=== PATIENT | male | born 1960 | race Caucasian/White ===

== ENCOUNTER → 2023-04-19 | Outpatient (CLI) | payer BC ==
[2023-04-19 16:25] LABS: Basophils # (A) 0.03 X 10*3/uL (0.00-0.10); Basophils % (A) 0.4 %; Eosinophils # (A) 0.04 X 10*3/uL (0.04-0.35); Eosinophils % (A) 0.6 %; HCT 47.3 % (39.6-50.0); HGB 15.7 d/dL (13.0-17.0); Lymphocytes # (A) 2.57 X 10*3/uL (0.90-5.00); Lymphocytes % (A) 35.5 %; MCH 30.3 pg (27.0-32.0); MCHC 33.2 d/dL (32.0-37.0); MCV 91.3 FL (80.0-97.0); Mean Platelet Volume 11.9 FL (9.5-12.2); Monocytes # (A) 0.52 X 10*3/uL (0.20-1.00); Monocytes % (A) 7.2 %; NRBC Per 100 WBC 0 X 10*3/uL (0.00-0.01); Neutrophils # (A) 4.02 X 10*3/uL (1.80-7.70); Neutrophils % (A) 55.6 %; Platelet Count 238 X 10*3/uL (140-440); RBC 5.18 X 10*6/uL (4.40-5.60); RDW 13.8 % (11.5-14.5); WBC 7.23 X 10*3/uL (4.50-10.00)
[2023-04-19 18:14] LABS: INR 0.97 sec (0.93-1.11)
[2023-04-19 18:40] LABS: BUN/Creat Ratio 23.25 Ratio (12.00-20.00); Blood Urea Nitrogen 18.6 mg/dL (9.0-27.0); Calcium 9.8 mg/dL (8.7-10.3); Carbon Dioxide 24.3 mmol/L (21.6-31.8); Chloride 103 mmol/L (96-109); Glucose 111 mg/dL (70-110); Potassium 4.5 mmol/L (3.5-5.5); Sodium 140 mmol/L (135-145)
== END | disposition home or self-care (01) ==
LOC: LABWHC1 10:02
PROVIDERS: ATTEND Orthopaedic Surgery
DX: Z01.812 Encounter for preprocedural laboratory examination (principal); Z22.322 Carrier or suspected carrier of Methicillin resistant Staphylococcus aureus; M17.12 Unilateral primary osteoarthritis, left knee
CPT/HCPCS: 36415; 80048; 85025; 85610; 87070; 93005

== ENCOUNTER → 2023-05-09 | Outpatient (CLI) | payer BC ==
[2023-05-09 19:58] LABS: HCT 48.6 % (39.6-50.0); MCH 30.4 pg (27.0-32.0); MCHC 32.9 d/dL (32.0-37.0); MCV 92.2 FL (80.0-97.0); Mean Platelet Volume 11.5 FL (9.5-12.2); NRBC Per 100 WBC 0 X 10*3/uL (0.00-0.01); Platelet Count 258 X 10*3/uL (140-440); RBC 5.27 X 10*6/uL (4.40-5.60); RDW 13.6 % (11.5-14.5); WBC 8.28 X 10*3/uL (4.50-10.00)
[2023-05-09 20:51] LABS: ALT 31 U/L (10-49); AST 18 U/L (14-35); Albumin 4.4 d/dL (3.8-4.9); Albumin/Globulin Ratio 1.83 Ratio (1.60-3.17); Alkaline Phosphatase 79 U/L (41-126); BUN/Creat Ratio 22.88 Ratio (12.00-20.00); Blood Urea Nitrogen 18.3 mg/dL (9.0-27.0); Calcium 9.8 mg/dL (8.7-10.3); Carbon Dioxide 26.4 mmol/L (21.6-31.8); Chloride 102 mmol/L (96-109); Globulin 2.4 d/dL (1.6-3.3); Glucose 105 mg/dL (70-110); Magnesium 2.1 mg/dL (1.5-2.4); Potassium 4.5 mmol/L (3.5-5.5); Sodium 140 mmol/L (135-145); Total Bilirubin 0.5 mg/dL (0.3-1.2); Total Protein 6.8 d/dL (6.2-8.2)
[2023-05-09 21:12] LABS: PSA Annual Screen 0.985 ng/mL (0.000-4.000)
== END | disposition home or self-care (01) ==
LOC: LABWHC1 13:06
PROVIDERS: ATTEND Orthopaedic Surgery
DX: Z00.00 Encounter for general adult medical examination without abnormal findings (principal); Z12.5 Encounter for screening for malignant neoplasm of prostate; Z76.89 Persons encountering health services in other specified circumstances; I48.0 Paroxysmal atrial fibrillation; N40.0 Benign prostatic hyperplasia without lower urinary tract symptoms; R53.83 Other fatigue; Z79.899 Other long term (current) drug therapy
CPT/HCPCS: 80061; 80053; 84443; 83735; 85027; 83036; 36415; G0103

== ENCOUNTER → 2023-05-09 | Outpatient (CLI) | payer BC ==
--- NOTE | 2023-05-10 11:39 | CA ---
Transthoracic Echo Report Name: Ramiro Gastelum Age: 63 Gender: M : 1960 Exam Date: 05/09/2023 13:04 Exam Location: [facility] Ht (in): 70 Wt (lb): 258 Ordering Physician: Buzz Painter MD ([id number]) Attending/Referring Phys: Mix Maker Adina Olmos RDCS Procedure CPT: Indications: I48.91 ATRIAL FIBRILLATION Cardiac Hx: Technical Quality: Fair Contrast 1: Total Dose (mL): Contrast 2: Total Dose (mL): MEASUREMENTS (Male / Female) Normal Values 2D ECHO LV Diastolic Diameter PLAX 3.3 cm 4.2 - 5.9 / 3.9 - 5.3 cm LV Systolic Diameter PLAX 2.6 cm IVS Diastolic Thickness 1.8 cm 0.6 - 1.0 / 0.6 - 0.9 cm LVPW Diastolic Thickness 1.5 cm 0.6 - 1.0 / 0.6 - 0.9 cm LV Relative Wall Thickness 1.0 RV Internal Dim ED PLAX 4.1 cm LA Volume 148.0 cm??? 18 - 58 / 22 - 52 cm??? LA Volume Index 60.4 cm???/m??? 16 - 28 cm???/m??? M-MODE Aortic Root Diameter MM 3.4 cm LA Systolic Diameter MM 5.3 cm LA Ao Ratio MM 1.6 AV Cusp Separation MM 2.5 cm DOPPLER AV Peak Velocity 98.6 cm/s AV Peak Gradient 3.9 mmHg AV Mean Velocity 68.0 cm/s AV Mean Gradient 2.1 mmHg AV Velocity Time Integral 17.9 cm LVOT Peak Velocity 76.7 cm/s LVOT Peak Gradient 2.4 mmHg LVOT Velocity Time Integral 12.0 cm MV Area PHT 4.0 cm??? Mitral E Point Velocity 70.9 cm/s Mitral A Point Velocity 0.7 cm/s Mitral E to A Ratio 100.5 MV Deceleration Time 188.4 ms TR Peak Velocity 167.2 cm/s TR Peak Gradient 11.2 mmHg Right Ventricular Systolic Press 16.2 mmHg FINDINGS Left Ventricle Moderately increased left ventricular wall thickness. Left ventricular cavity size normal. Normal left ventricular systolic function with no obvious regional wall motion abnormalities. Left ventricular ejection fraction is estimated at 50-55 %. Right Ventricle Moderate right ventricular dilatation. Right ventricular systolic pressure within normal limits. Right Atrium Normal right atrial size. Left Atrium Severely increased left atrial volume. Moderately increased left atrial area. Mitral Valve Structurally normal mitral valve. Mitral valve thickened. Mild mitral annular calcification. Moderate mitral regurgitation. Aortic Valve Trileaflet aortic valve. No aortic valve stenosis or regurgitation. Tricuspid Valve Structurally normal tricuspid valve. Mild tricuspid regurgitation. Pulmonic Valve Trace pulmonic regurgitation. Pericardium No pericardial effusion. Aorta Normal size aortic root and proximal ascending aorta. CONCLUSIONS LVH with low normal LV systolic function, left atrial enlargement Previewed by: Dr. Jovan Chen MD (Electronically Signed) Final Date: 10 May 2023 11:38
== END | disposition home or self-care (01) ==
LOC: RADECHMAIN 12:56
PROVIDERS: ATTEND Student in an Organized Health Care Education/Training Program
DX: I48.91 Unspecified atrial fibrillation (principal)
CPT/HCPCS: 93306

== ENCOUNTER 2023-05-23 06:00 | Day surgery (SDC) | payer BC ==
[2023-05-18 12:00] VITALS: BMI 35.9
[~2023-05-23 06:00] MED LIST: LACTATED RINGERS 1,000 ML IV SCH; LIDOCAINE 1% (10MG/ML) FOR IV START INTRADERMA PRN
[2023-05-23 06:56] VITALS: TEMP 98.2
[2023-05-23] MEDS ORDERED: HYDROmorphone 0.5 MG/0.5 ML SYRINGE IVP PRN (07:00)
[2023-05-23] MEDS ORDERED: PROPOFOL 10 MG/ML 20 ML VIAL IV ONE (07:45)
[2023-05-23 07:57] VITALS: RESP 16
[2023-05-23 09:37] VITALS: BP 121/73; PULSE 78
--- NOTE | 2023-05-23 21:09 | P.TEE ---
Date of Procedure: 05/23/23 Description of Procedure(s): Procedure performed: 1. Transesophageal Echocardiogram. 2. Synchronized Cardioversion. Indications: Persistent atrial fibrillation Consent: I have discussed the risks, benefits and alternative therapies for the above-mentioned procedure. The patient has indicated understanding and acceptance of the risks of the procedure. Signed consent was obtained and was placed in the paper chart. Moderate conscious sedation: Moderate conscious sedation was administered by anesthesia, see separate report. Procedural Steps: Timeout was performed in usual fashion. Patient's heart rate, blood pressure, oxygen saturation and ECG were monitored. After achieving appropriate moderate conscious sedation, TYRONE probe was advanced without difficulty and without any immediate complications to the esophagus. TYRONE study was performed with color flow doppler, pulsed wave doppler and continuous wave doppler. Agitated saline bubbles were injected to assess for any intra-atrial shunt. The probe was then removed. After making sure that there is no evidence of intracardiac thrombus, pacer pads were placed on patients chest and back. Synchronized cardioversion was perfromed using [150] J. [1] attempt. Sinus rhythm was confirmed with a 12 lead EKG. Patient tolerated the procedure well. Patient was transferred to the post procedure area in stable and satisfactory condition. Complications: none FINDINGS Left Atrium: Moderate left atrial dilatation. No evidence of mass or thrombus seen Left Atrial Appendage: No evidence of thrombus or mass seen in PATRIC[place] Inter atrial septum: Intact inter-atrial septum. No evidence of atrial septal defect or patent foramen ovale on color doppler. Left Ventricle: Normal global LV size and systolic function Right Atrium: Normal overall RV size Right Ventricle: Normal global RV size and systolic function Aortic Valve: Structurally normal Trileaflet, no significant calcification. No significant stenosis or regurgitation on color doppler assessment. Mitral Valve: Struturally normal. No evidence of prolapse. Moderate functional mitral regurgitation Pulmonic Valve: Not well visualized. Tricuspid Valve: Structurally normal. Ascending aorta, Aortic root and Aortic arch: Mild intimal thickening. No e vidence of large atheroma or bulky calcification Descending aorta: Mild intimal thickening. No evidence of large atheroma or bulky calcification CONCLUSION: No evidence of left atrial or left atrial appendage thrombus Moderate left atrial dilatation Moderate functional mitral regurgitation Overall normal global LV size and systolic function Successful synchronized cardioversion in one attempt No changes to the medication, follow-up outpatient in next 1-2 weeks
== END 2023-05-23 09:48 | disposition home or self-care (01) ==
LOC: OR 06:00
PROVIDERS: ATTEND Student in an Organized Health Care Education/Training Program
DX: I48.19 Other persistent atrial fibrillation (principal); J45.909 Unspecified asthma, uncomplicated; F12.90 Cannabis use, unspecified, uncomplicated; I10 Essential (primary) hypertension; Z79.01 Long term (current) use of anticoagulants; Z79.51 Long term (current) use of inhaled steroids; Z79.899 Other long term (current) drug therapy; Z87.891 Personal history of nicotine dependence; Z88.0 Allergy status to penicillin
CPT/HCPCS: 93312; 93320; 93325; 92960; J2704

== ENCOUNTER → 2023-09-29 | Outpatient (CLI) | payer BC ==
--- NOTE | 2023-10-05 10:54 | P.PCN ---
Date of Procedure: 09/29/23 Operative Findings: The study report Date of services 09/29/2023 Pertinent history 63-year-old male patient referred to me for sleep apnea evaluation. The patient has paroxysmal A-fib under the care of cardiology maintained on a combination of metoprolol and anticoagulation with Eliquis. Suspected obstructive sleep apnea, but believes his A-fib. The patient does not have the typical symptoms and signs of obstructive sleep apnea. He has a positive family history. He has lost weight over the past few years. He has hypertension Pertinent physical findings Height is 5 feet and 10 inches, weight is 271 pounds with a BMI of 38.9 Technical description The [employer] apnea link system was used to complete some sleep study. There is a type III home sleep study. Total recording duration was 8 hours and 47 minutes. The study started at 10:24 PM and ended at 7:12 AM. There was more than 8 hours of flow and oxygen saturation evaluation throughout the study Results The respiratory analysis showed a total of 26 obstructive apneas and 53 obstructive hypopneas. The resulting AHI was 10.3 worse in supine body position with an AHI of 19.6 while supine. Oxygenation analysis There was a total of 71 oxygen saturation with a pulse of provide more than 4%. Baseline pulse ox while awake was 96%, average pulse ox during sleep was 93% with a minimum pulse ox of 84% and the patient spent only 9 minutes of sleep time below pulse ox of 99% Cardiac summary Average heart rate was 55 with a minimum heart rate of 48 and max heart rate of 95 Assessment Mild obstructive sleep apnea, positional. Apnea-hypopnea index was 10.3 worse in the supine body position. No significant nocturnal oxygen saturation. No major hypersomnia or sleepiness Paroxysmal A-fib Allergic bronchial asthma Hypertension Obesity with a BMI of 38 Plan This is a case of mild obstructive sleep apnea. The results were discussed with the patient and treatment options will be also discussed. I personally do not think that sleep apnea is been a major factor to the patient's A-fib. The patient has mild disease. Encouraged to continue his efforts to lose weight. Obviously, we can treat him with CPAP or other appropriate treatments such as an oral appliance as long as the patient is willing to undertake treatment and only becomes symptomatic from sleep apnea. A final decision on treatment will be made after having a discussion with the patient.
== END ==
LOC: 3 N SLEEP 12:59
PROVIDERS: ATTEND Internal Medicine Critical Care Medicine
DX: G47.33 Obstructive sleep apnea (adult) (pediatric) (principal); I48.0 Paroxysmal atrial fibrillation; J45.909 Unspecified asthma, uncomplicated; I10 Essential (primary) hypertension; F12.90 Cannabis use, unspecified, uncomplicated; E66.9 Obesity, unspecified; Z68.38 Body mass index [BMI] 38.0-38.9, adult; Z88.7 Allergy status to serum and vaccine; Z88.0 Allergy status to penicillin; Z88.8 Allergy status to other drugs, medicaments and biological substances; Z79.01 Long term (current) use of anticoagulants; Z79.899 Other long term (current) drug therapy; Z79.51 Long term (current) use of inhaled steroids

== ENCOUNTER → 2024-01-09 | Outpatient (CLI) | payer BC ==
[2024-01-09 15:03] LABS: HCT 47.4 % (39.6-50.0); HGB 15.6 g/dL (13.0-17.0); MCH 29.1 pg (27.0-32.0); MCHC 32.9 g/dL (32.0-37.0); MCV 88.3 FL (80.0-97.0); Mean Platelet Volume 10.8 FL (9.5-12.2); NRBC Per 100 WBC 0 X 10*3/uL (0.00-0.01); Platelet Count 245 X 10*3/uL (140-440); RBC 5.37 X 10*6/uL (4.40-5.60); RDW 13.9 % (11.5-14.5); WBC 6.67 X 10*3/uL (4.50-10.00)
[2024-01-09 15:25] LABS: NT-Pro-B-Type Natriuretic Pept 159 pg/mL (0-125)
[2024-01-09 15:41] LABS: ALT 26 U/L (10-49); AST 23 U/L (14-35); Albumin 4.2 g/dL (3.8-4.9); Albumin/Globulin Ratio 1.68 Ratio (1.60-3.17); Alkaline Phosphatase 80 U/L (41-126); BUN/Creat Ratio 31.86 Ratio (12.00-20.00); Blood Urea Nitrogen 22.3 mg/dL (9.0-27.0); Calcium 9.4 mg/dL (8.7-10.3); Carbon Dioxide 25.3 mmol/L (21.6-31.8); Chloride 101 mmol/L (96-109); Chol/HDL Ratio 2.86 Ratio; Globulin 2.5 g/dL (1.6-3.3); Glucose 107 mg/dL (70-110); LDL Cholesterol,Calculated 103.3 mg/dL (0.0-131.0); Potassium 4.7 mmol/L (3.5-5.5); Sodium 139 mmol/L (135-145); Total Bilirubin 0.5 mg/dL (0.3-1.2); Total Protein 6.7 g/dL (6.2-8.2); VLDL Calculation 11.76 mg/dL (5.00-40.00)
== END | disposition home or self-care (01) ==
LOC: LABWHC1 08:18
PROVIDERS: ATTEND Student in an Organized Health Care Education/Training Program
DX: I48.91 Unspecified atrial fibrillation (principal); I50.9 Heart failure, unspecified; N18.9 Chronic kidney disease, unspecified; D63.1 Anemia in chronic kidney disease
CPT/HCPCS: 36415; 80053; 80061; 83036; 83880; 84443; 85027

== ENCOUNTER → 2024-11-19 | Outpatient (CLI) | payer MEDICARE, BC ==
[2024-11-19 14:51] LABS: HCT 48.3 % (39.6-50.0); HGB 16.1 g/dL (13.0-17.0); MCH 29.9 pg (27.0-32.0); MCHC 33.3 g/dL (32.0-37.0); MCV 89.6 FL (80.0-97.0); Mean Platelet Volume 10.6 FL (9.5-12.2); NRBC Per 100 WBC 0 X 10*3/uL (0.00-0.01); Platelet Count 262 X 10*3/uL (140-440); RBC 5.39 X 10*6/uL (4.40-5.60); RDW 14.1 % (11.5-14.5); WBC 6.51 X 10*3/uL (4.50-10.00)
[2024-11-19 15:03] LABS: ALT 27 U/L (10-49); AST 27 U/L (14-35); Albumin 4.2 g/dL (3.8-4.9); Alkaline Phosphatase 77 U/L (41-126); Calcium 9.5 mg/dL (8.7-10.3); Carbon Dioxide 25.4 mmol/L (21.6-31.8); Chloride 101 mmol/L (96-109); Chol/HDL Ratio 2.66 Ratio; Globulin 2.8 g/dL (1.6-3.3); Glucose 105 mg/dL (70-110); LDL Cholesterol,Calculated 102.2 mg/dL (0.0-131.0); Potassium 4.9 mmol/L (3.5-5.5); Sodium 138 mmol/L (135-145); Total Bilirubin 0.5 mg/dL (0.3-1.2); VLDL Calculation 8.94 mg/dL (5.00-40.00)
[2024-11-19 15:15] LABS: NT-Pro-B-Type Natriuretic Pept 73 pg/mL (0-125)
== END | disposition home or self-care (01) ==
LOC: LABWHC1 12:24
PROVIDERS: ATTEND Student in an Organized Health Care Education/Training Program
DX: I50.9 Heart failure, unspecified (principal); E11.9 Type 2 diabetes mellitus without complications; E78.5 Hyperlipidemia, unspecified; E03.9 Hypothyroidism, unspecified; D72.9 Disorder of white blood cells, unspecified; R79.89 Other specified abnormal findings of blood chemistry
CPT/HCPCS: 36415; 80053; 80061; 83036; 83880; 84443; 85027